=== PATIENT | female | born 1985 ===

== ENCOUNTER 2021-06-05 07:52 | Emergency (ER) | payer OTHER ==
[~2021-06-05] VITALS: Ht 167.6 cm; Wt 59.0 kg
[~2021-06-05 07:52] MED LIST: FAMO20 PO; MULVITMINE; PHENY100ER PO
[2021-06-05 09:41] LABS: Hematocrit 41.6 % (33.0-51.0); Hemoglobin 13.5 g/dL (11.5-16.0); Mean Corpuscular HGB 28.8 pg (26.0-34.0); Mean Corpuscular HGB Conc 32.5 g/dL (31.5-36.5); Mean Corpuscular Volume 89 fL (80-100); Mean Platelet Volume 9.5 fL (9.1-12.4); Platelet Count 295 K/mm3 (150-400); RDW Coefficient Variation 12.3 % (11.7-14.2); RDW Standard Deviation 39.2 fL (35.1-46.3); Red Blood Cell Count 4.69 M/mm3 (3.80-5.20); White Blood Cell Count 10.43 K/mm3 (4.00-11.30)
[2021-06-05 10:04] LABS: Anion Gap 6 mmol/L (6-16); Blood Urea Nitrogen 10 mg/dL (8-24); Bun/Creatinine Ratio 15.6 (12.0-20.0); CO2, Blood 28 mmol/L (21-32); Chloride, Blood 103 mmol/L (98-108); Creatinine, Blood 0.64 mg/dL (0.40-1.00); Glomerular Filtration Rate >60 (60-); Glucose, Blood 89 mg/dL (70-99); Magnesium, Blood 2.2 mg/dL (1.6-2.4); Potassium, Blood 3.2 mmol/L (3.5-5.5); Sodium, Blood 137 mmol/L (136-145)
[2021-06-05 10:23] LABS: Source, Urine Clean Catch
[2021-06-05 10:27] LABS: Appearance, Urine Clear (Clear); Bilirubin, Urine Neg (Neg); Blood, Urine 5+ (Neg); Color, Urine Yellow (P-Yellow); Glucose Qualitative, Urine Neg (Neg); Ketones, Urine 3+ (Neg); Leukocyte Esterase, Urine Neg (Neg); Nitrite, Urine Neg (Neg); Protein, Urine 1+ (Neg); Specific Gravity, Urine 1.025 (1.003-1.022); Urobilinogen, Urine 1+ (Normal)
[2021-06-05 10:34] LABS: Bacteria Rare /hpf; Red Blood Cells, Urine 25-50 /hpf (0-2); Squamous Epithelial Cells Few /hpf (Few); White Blood Cells, Urine Not Seen /hpf (0-5)
[2021-06-06] MEDS ORDERED: AMPDEX10CR PO (11:00)
[2021-06-06] MEDS ORDERED: BUPRENORPHINE HC2 M1 SL (11:00)
[2021-06-06] MEDS ORDERED: DULO60 PO (11:01)
[2021-06-06] MEDS ORDERED: PROP60 PO (11:02)
[2021-06-06] MEDS ORDERED: TRETINOIN TOP (11:02)
== END 2021-06-05 12:24 | disposition home or self-care (01) ==
LOC: ER 07:52
PROVIDERS: Physician Assistant; Student in an Organized Health Care Education/Training Program
DX: O03.4 Incomplete spontaneous abortion without complication (principal); R55 Syncope and collapse
CPT/HCPCS: 36415; 76830; 76856; 80048; 81001; 83735; 84702; 85027; 86900; 86901; 87086; 93005; 93010; 99284-25; A9270